=== PATIENT | male | born 1995 | race Caucasian/White ===

== ENCOUNTER 2018-09-04 05:30 | Emergency (ER) | payer SELFPAY ==
[~2018-09-04] VITALS: Ht 185.4 cm; Wt 80.0 kg
[2018-09-04 06:00] VITALS: BP 154/98
[2018-09-04] MEDS ORDERED: LIDOCAINE HCL 1% 20ML VIAL (Pyxis) INJ INFIL ONE (07:15)
[2018-09-04] MEDS ORDERED: LIDOCAINE HCL 1% 10 MG/ML 10ML VIAL ONE (07:35)
== END 2018-09-04 09:07 | disposition home or self-care (01) ==
LOC: ER 05:30
DX: S51.812A Laceration without foreign body of left forearm, initial encounter (principal); W01.110A Fall on same level from slipping, tripping and stumbling with subsequent striking against sharp glass, initial encounter; Y93.89 Activity, other specified; Y92.89 Other specified places as the place of occurrence of the external cause; F17.210 Nicotine dependence, cigarettes, uncomplicated; F12.90 Cannabis use, unspecified, uncomplicated
CPT/HCPCS: 12002; 99283; J3490; X7700; Z7610